=== PATIENT | female | born 1975 | race Caucasian/White ===

== ENCOUNTER → 2024-02-17 06:30 | Day surgery (SDC) | payer OTHER, SELFPAY | LOC: GI 06:30 | PROVIDERS: ATTENDING PHYSICIAN Internal Medicine Gastroenterology | DX: K31.A19 Gastric intestinal metaplasia without dysplasia, unspecified site (principal); K31.89 Other diseases of stomach and duodenum; T18.2XXA Foreign body in stomach, initial encounter; Y83.1 Surgical operation with implant of artificial internal device as the cause of abnormal reaction of the patient, or of later complication, without mention of misadventure at the time of the procedure; Z98.84 Bariatric surgery status | CPT/HCPCS: 43239; 88305; 88342 ==

== ENCOUNTER → 2024-02-29 10:55 | Outpatient (REF) | payer OTHER, SELFPAY | LOC: RCS 10:55 | PROVIDERS: ATTENDING PHYSICIAN Surgery Plastic and Reconstructive Surgery; FAMILY PHYSICIAN Family Medicine | DX: Z01.818 Encounter for other preprocedural examination (principal) | CPT/HCPCS: 93005 ==

== ENCOUNTER → 2024-05-31 08:37 | Outpatient (REF) | payer OTHER, SELFPAY | LOC: WDC 08:37 | PROVIDERS: ATTENDING PHYSICIAN Family Medicine | DX: Z12.31 Encounter for screening mammogram for malignant neoplasm of breast (principal) | CPT/HCPCS: 77063; 77067 ==

== ENCOUNTER 2024-12-14 23:17 | Emergency (ER) | payer OTHER, SELFPAY ==
[2024-12-14 23:26] VITALS: BP 170/104
--- NOTE | 2024-12-15 01:18 | ED.GENMED ---
History of Present Illness
General
Chief Complaint: Facial Problem
Time Seen by Provider: 12/15/24 01:18
History of Present Illness
History of Present Illness:
FOCUSED PAST MEDICAL HISTORY
- Trigeminal neuralgia, high blood pressure, hypothyroidism, anxiety/depression
REVIEW OF OLD RECORDS
- The patient had EGD for gastric intestinal metaplasia in 2023
Note:
CHIEF COMPLAINT(S)
Facial pain and swelling.
HISTORY OF PRESENT ILLNESS
The patient is a 49-year-old female with a history of recurrent facial pain consistent with a preliminary diagnosis of trigeminal neuralgia by her general practitioner, not yet confirmed by a neurologist. Symptoms first appeared six months ago and
lasted approximately a week before resolving spontaneously. The current episode began a few days ago and has been more severe than previous occurrences. She describes the pain as constant 'electrical shock' sensations. The pain has not been
alleviated by her usual medications, including a recent increased dosage of gabapentin, naproxen, and cyclobenzaprine. She also applied topical lidocaine out of desperation without relief. The patient reports associated right-sided facial swelling,
particularly at the angle of the mandible, but no fever or systemic symptoms. She previously canceled a neurology appointment during a symptom-free period but plans to reschedule. She is experiencing significant fatigue and is unable to manage
activities of daily living comfortably.
PAST MEDICAL AND SURGICAL HISTORY
The patient mentions taking gabapentin previously as needed for her symptoms.
EXTERNAL RECORDS REVIEWED
The patient indicates having dental x-rays which revealed no cavities, affirmed by her dentist.
PHYSICAL EXAM
- General: Well appearing but appears rather uncomfortable
- HEENT: Subcentimeter ulcerative lesion to the left posterior oropharynx however she has no pain here, there is some mild soft tissue swelling over the angle of the right side of the manage that extends to the right side of the anterior lateral
- Cardiovascular: No murmurs, normal heart rate, regular rhythm, No chest wall tenderness
- Pulmonary: No respiratory distress
- Abdomen: Soft with no peritoneal signs
- Neurologic: Excellent strength all extremities, no coordination deficits
- Psychiatric: Appropriate mental status, normal insight and judgement
- Extremities: Nontender, no edema, moves all extremities equally
- Skin: No rash, no lesions
PLAN
- Initiate IV for administering medications and blood work.
- Plan for a CT scan of the affected area to rule out any anatomical abnormalities such as mass or abscess.
- Administer Toradol for pain and swelling.
- Administer Dilaudid for pain relief.
- Provide prescription for short-term narcotic use if needed.
- The patient will arrange for transportation home after treatment.
DIFFERENTIAL DIAGNOSIS
The Differential Diagnosis includes, in no particular order and is not limited to:
- Trigeminal neuralgia
- Dental abscess
- Temporomandibular joint disorder
- Sinusitis
- Migraine
- [place] palsy
- Cluster headache
- Atypical facial pain
- Herpetic neuralgia
- Mandibular fracture
SUMMARY OF ENCOUNTER
The patient presented to the emergency department with severe recurrent facial pain and swelling. Previous medications have been ineffective, and she is visibly exhausted and unable to manage the pain at home. The care plan includes pain management
with intravenous medications and further imaging to assess any anatomical causes for her symptoms.
DISPOSITION
The patient is to be discharged after receiving IV medications and completing a CT scan. She will follow up with her neurologist for ongoing management.
ASSESSMENT
The patient likely has a severe flare of trigeminal neuralgia, with considerations for other facial pain etiologies pending imaging results.
EMERGENCY TREATMENTS ADMINISTERED
Administered intravenous Toradol for anti-inflammatory effects and Dilaudid for pain relief.
MEDICATION RECONCILIATION
Current use of gabapentin, naproxen, and cyclobenzaprine noted. Administered Toradol and Dilaudid in the emergency department. Prescription for a short course of narcotic analgesics provided for home use.
DIAGNOSIS
Odontogenic facial infection
SUMMARY OF ENCOUNTER
The patient, a 49-year-old female, presented to the emergency department with severe facial pain and swelling, initially suspected to be trigeminal neuralgia. However, upon examination and additional tests, there was significant tenderness around a
molar, suggesting a possible dental infection. Radiological input indicated concern for infection but not an abscess. The patient reported prior dental imaging showing no cavities, but current symptoms suggest a potential developing dental issue.
The management plan included initiating antibiotics due to the suspicion of a dental source of infection, alongside pain management.
DISPOSITION
Discharge.
ASSESSMENT
The patients presentation is consistent with a suspected dental infection, possibly contributing to her facial pain and related to previous symptoms of trigeminal neuralgia.
EMERGENCY TREATMENTS ADMINISTERED
Administered a dose of amoxicillin and clavulanate (Augmentin) for immediate antibiotic coverage.
PLAN
The patient will be started on antibiotics, specifically amoxicillin and clavulanate, for the suspected dental infection. Short-term narcotic analgesics and anti-inflammatory medications were advised for pain management. The patient is advised to
follow up with her dentist for further evaluation and treatment.
FOLLOW-UP INSTRUCTIONS
Patient is advised to follow up with her dentist as soon as possible to further evaluate the dental infection and determine if additional treatment such as dental work is necessary.
MEDICATION RECONCILIATION
Administered a dose of amoxicillin and clavulanate in the emergency department. Prescribed amoxicillin and clavulanate for home use. Provided short-term narcotic analgesics for pain management.
MEDICAL DECISION MAKING
- Number and Complexity of Problems Addressed: Chronic conditions affecting care include recurrent facial pain consistent with trigeminal neuralgia and a suspected dental infection.
- Data:
Category 2: Clinical information was verified by the dental x-rays obtained by the patients dentist which previously indicated no cavities.
Category 1: My independent review suggests a dental infection based on clinical examination, explaining the significant tenderness and swelling around the molar area.
Category 3: Discussion was held regarding antibiotic treatment for a dental infection, balancing the need for pain relief with narcotics, while continuing anti-inflammatory therapy.
- Risk:
Prescription medication was effectively administered during the visit with amoxicillin and clavulanate initiated for suspected dental infection. Pain management was reinforced with narcotic analgesics. Consideration of Admission/Observation:
Escalation of care including admission/observation was considered given the complexity and risk of the patients presenting complaint and exam findings. However, ultimately, it was concluded that the patient is safe for outpatient management with
close follow-up. Reasoning: Work-up is reassuring, does not reveal any acute life/organ-threatening processes, the patients symptoms well controlled upon reevaluation, reexamination is reassuring, vitals are stable, patient agreeable with discharge,
reliable for follow-up.
RADIOLOGY
- CT imaging obtained
LABS
- CBC and chemistries unremarkable
UPDATE
- The patient was given Toradol as well as Dilaudid for pain.
Past History
Past History
ED Past Medical History: Hypothyroidism and Psychiatric
ED Past Surgical History:
Social History
Tobacco: Former smoker
Alcohol: Occasional
Drug: None
Personal:
Living: with family
Employment: Employed
Family History
Family History: Other (Noncontributory)
Phy Exam
Physical Exam
Physical Exam:
See HPI
Course
Orders/Labs/Results
Orders:
Orders
12/15/24 02:00
CT Neck With Iv Contrast Urgent
Comment:
Reason For Exam: swelling angle R mandible and R neck
HYDROmorphone [Dilaudid] 1 mg IV NOW STA
Ketorolac [Toradol] 15 mg IV NOW STA
Ondansetron Injectable [Zofran] 4 mg IV NOW STA
12/15/24 02:18
Basic Metabolic Panel Urgent
Complete Blood Count/With Diff Urgent
12/15/24 04:15
Amoxicillin 875 mg/Clav 125 mg [Augmentin 875 mg/125 mg] 1 tablet PO NOW STA
Abnormal Lab Results
12/15/24
02:18
Hct 36.5 L %
(37.0-47.0)
Glucose 105 H mg/dl
(70-99)
12/15/24 02:18
12/15/24 02:18
Vital Signs
Initial and Last Documented VS:
Initial Vital Signs
Temp Pulse Resp BP Pulse Ox
36.8 C 73 20 170/104 100
12/14/24 23:26 12/14/24 23:26 12/14/24 23:26 12/14/24 23:26 12/14/24 23:26
Last Documented Vital Signs
Temp Pulse Resp BP Pulse Ox
36.8 C 73 20 170/104 100
12/14/24 23:26 12/14/24 23:26 12/14/24 23:26 12/14/24 23:26 12/15/24 01:19
*Pulse Oximetry
SaO2: 100
Oxygen Mode of Delivery: Room air
Patient hypoxic: no
*Critical Care Note
Total Time (30-74mins, 75-104mins- exclusive of procedures): Not Applicable
ED Attending Note
-
Portions of this chart may have been created with voice recognition software.� Occasional wrong word or��sound alike� substitutions may have occurred due to the inherent limitations of voice recognition software.
Discharge Plan
Departure
Patient Disposition: Home (Routine Discharge)
Date of Disposition: 12/15/24
Time of Disposition: 04:12
Patient with high blood pressure during this ER visit?: Yes
Discharge Problem:
Odontogenic infection of jaw
Instructions: Cellulitis (Skin Infection), Adult (DC), BLOOD PRESSURE
Prescriptions:
New
amoxicillin-pot clavulanate 875-125 mg tablet
1 tab PO BID Qty: 14 0RF
oxycodone-acetaminophen [Percocet] 5-325 mg tablet
1 - 2 tab PO Q8HPRN PRN (Reason: pain) Qty: 14 0RF
No Action
sertraline 100 MG tablet
200 mg PO DAILY
cholecalciferol (vitamin D3) 5,000 UNIT tablet
5,000 unit PO DAILYPRN PRN (Reason: when pt remembers)
lamotrigine [Lamictal] 150 MG tablet
150 mg PO QPM
levothyroxine 75 MCG tablet
75 mcg PO DAILY
dicyclomine 20 MG tablet
20 mg PO QIDPRN PRN (Reason: spasms)
hyoscyamine sulfate 0.125 MG tablet, sublingual
0.125 mg sublingual Q4HPRN PRN (Reason: spasms)
Referrals:
Ruthy Juárez DO [Family Provider, Family Practice]
Activity Restrictions/Additional Instructions:
Your white blood cell count is normal and you do not have a fever however the CAT scan of the neck does suggest infection centered around a molar in the back right of your mouth. I recommend that we start antibiotics. I will send a prescription to
your pharmacy for both pain medication and Augmentin. If you take the pain medication which is a narcotic, I recommend taking something like MiraLAX to help with the constipation.
Interventions
Interventions:
*Risk Screen - Suicide Last Done: 12/14/24 23:26
*General Assessment Last Done: 12/14/24 23:26
*Neglect/Abuse Screening Last Done: 12/14/24 23:26
*ED- Fall Risk Assessment Last Done: 12/14/24 23:26
*ED COVID-19 Vaccine History Last Done: 12/14/24 23:26
ED- Neurological Assessment Last Done: 12/15/24 02:30
ED-Skin Assessment Last Done: 12/15/24 02:30
Discharge Date and Time
Print Language: CZECH
[2024-12-15] MEDS: DILAUDID 1 MG IV (02:12)
[2024-12-15] MEDS: TORADOL 15 MG IV (02:12)
[2024-12-15] MEDS: ZOFRAN 4 MG IV (02:13)
[2024-12-15 02:29] LABS: Hematocrit 36.5 % (37.0-47.0); Hemoglobin 12.4 g/dL (12.0-16.0); Mean Corp Hgb Conc. 34.0 g/dL (33.0-37.0); Mean Corpuscular Volume 82.0 fL (81.0-99.0); Nucleated Red Blood Cells % 0 %; Platelet Count 251 10^3/uL (130-400); Red Cell Dist. Width 12.6 % (11.5-14.5)
[2024-12-15 02:43] LABS: Blood Urea Nitrogen 14 mg/dl (7-17); Calcium 9.8 mg/dl (8.4-10.2); Carbon Dioxide 26 mmol/L (22-30); Chloride 105 mmol/L (98-107); Glucose 105 mg/dl (70-99); Potassium 3.9 mmol/L (3.5-5.1); Sodium 141 mmol/L (135-145); eGFR > 60.00
[2024-12-15 03:30] VITALS: BP 146/93
[2024-12-15] MEDS: AUGMENTIN 875 MG/125 MG 1 TABLET PO (04:19)
== END 2024-12-15 05:16 | disposition home or self-care (01) ==
LOC: EMR 23:17
PROVIDERS: EMERGENCY PHYSICIAN Emergency Medicine; FAMILY PHYSICIAN Family Medicine
DX: M27.2 Inflammatory conditions of jaws (principal); E03.9 Hypothyroidism, unspecified; Z87.891 Personal history of nicotine dependence
CPT/HCPCS: 96374; 96375; 99284; 70491; 80048; 85025; Q9967

== ENCOUNTER 2024-12-16 14:05 | Emergency (ER) | payer OTHER, SELFPAY ==
[2024-12-16 14:08] VITALS: BP 162/100
[2024-12-16 14:52] VITALS: BMI 25.2
--- NOTE | 2024-12-16 15:00 | ED.GENMED ---
History of Present Illness
General
Chief Complaint: Facial Problem
Time Seen by Provider: 12/16/24 14:43
History of Present Illness
History of Present Illness:
49-year-old female presents the emergency department for evaluation of worsening right facial/jaw swelling. She was seen in this emergency department a day and a half ago for similar symptoms at which time she was identified to have a likely
odontogenic mandibular infection and was started on Augmentin. She has been compliant with antibiotics, taking 3 doses thus far however feeling worse. Has not yet followed up with a dentist due to the weekend. No fevers or night sweats
Past History
Past History
ED Past Medical History: Hypothyroidism and Psychiatric
ED Past Surgical History:
Social History
Tobacco: Former smoker
Alcohol: Occasional
Drug: None
Personal:
Living: with family
Employment: Employed
Family History
Family History: Other (Noncontributory)
Review of Systems
Review of Systems
Allergies reviewed?: Yes
All Other Systems: ROS reviewed and negative except as documented in HPI and ROS
Phy Exam
Physical Exam
Physical Exam:
GEN: Well appearing, NAD, WDWN
HEENT: Oral mucosa moist, no scleral icterus. R mandibular swelling, no trismus, oropharynx clear, no oropharyngeal edema or erythema. No clear dental/buccal mucosal fluctuance
Cardiac: Regular rate
Lung: No respiratory distress, no tachypnea
MSK: No gross deformity or injuries
Skin: Good color, no pallor or jaundice, no rashes
Neuro: AO x3, moves all extremities freely
Psych: Calm, cooperative
Course
Orders/Labs/Results
Orders:
Orders
12/16/24 14:59
Oxycodone [Roxicodone] 5 mg PO NOW STA
12/16/24 15:05
HYDROmorphone [Dilaudid] 0.5 mg IV NOW STA
12/16/24 15:08
Ampicillin/Sulbactam 3 G [Unasyn] 3 gm 0.9% Sodium Chloride 100 ml [Nss] 100 ml IV NOW
Ondansetron Injectable [Zofran] 4 mg .ROUTE .STK-MED ONE
12/16/24 15:09
Ondansetron Injectable [Zofran] 4 mg IV NOW STA
12/16/24 16:15
Ketorolac [Toradol] 15 mg IV NOW STA
Vital Signs
Initial and Last Documented VS:
Initial Vital Signs
Temp Pulse Resp BP Pulse Ox
98.8 F 82 17 162/100 99
12/16/24 14:08 12/16/24 14:08 12/16/24 14:08 12/16/24 14:08 12/16/24 14:08
Last Documented Vital Signs
Temp Pulse Resp BP Pulse Ox
98.8 F 72 18 134/90 100
12/16/24 14:08 12/16/24 16:40 12/16/24 16:40 12/16/24 16:40 12/16/24 16:40
MDM/Problems Addressed
MDM/Problems Addressed:
Given 1 dose of IV antibiotics and pain control. Do not see indication for further imaging at this time. Will recommend close dental follow-up as an outpatient, no drainable abscess seen on exam today
*Pulse Oximetry
SaO2: 99
Oxygen Mode of Delivery: Room air
Patient hypoxic: no
*Critical Care Note
Total Time (30-74mins, 75-104mins- exclusive of procedures): Not Applicable
ED Attending Note
-
Portions of this chart may have been created with voice recognition software.� Occasional wrong word or��sound alike� substitutions may have occurred due to the inherent limitations of voice recognition software.
Discharge Plan
Departure
Patient Disposition: Home (Routine Discharge)
Date of Disposition: 12/16/24
Time of Disposition: 16:55
Patient with high blood pressure during this ER visit?: No
Discharge Problem:
Dental infection
Instructions: Tooth Abscess (DC)
Prescriptions:
New
ketorolac 10 mg tablet
10 mg PO Q8H PRN (Reason: Pain) Qty: 10 0RF
Rx Instructions:
maximum total duration of 5 days from all oral, intranasal, or parenteral formulations
No Action
sertraline 100 MG tablet
200 mg PO DAILY
cholecalciferol (vitamin D3) 5,000 UNIT tablet
5,000 unit PO DAILYPRN PRN (Reason: when pt remembers)
lamotrigine [Lamictal] 150 MG tablet
150 mg PO QPM
levothyroxine 75 MCG tablet
75 mcg PO DAILY
dicyclomine 20 MG tablet
20 mg PO QIDPRN PRN (Reason: spasms)
hyoscyamine sulfate 0.125 MG tablet, sublingual
0.125 mg sublingual Q4HPRN PRN (Reason: spasms)
amoxicillin-pot clavulanate 875-125 mg tablet
1 tab PO BID Qty: 14 0RF
oxycodone-acetaminophen [Percocet] 5-325 mg tablet
1 - 2 tab PO Q8HPRN PRN (Reason: pain) Qty: 14 0RF
Referrals:
Ruthy Juárez DO [Family Provider, Family Practice]
Activity Restrictions/Additional Instructions:
Your CT from Tuesday showed a periapical lucency to the right first mandibular molar that may be the source of your infection, please follow-up with your dentist regarding this
Stop the naproxen in favor of oral Toradol
Interventions
Interventions:
*Risk Screen - Suicide Last Done: 12/16/24 14:09
*General Assessment Last Done: 12/16/24 14:09
*Neglect/Abuse Screening Last Done: 12/16/24 14:09
*ED- Fall Risk Assessment Last Done: 12/16/24 17:05
*ED COVID-19 Vaccine History Last Done: 12/16/24 14:09
*Nursing Disposition Last Done: 12/16/24 17:05
ED- Neurological Assessment Last Done: 12/16/24 17:05
ED-Skin Assessment Last Done: 12/16/24 17:05
Discharge Date and Time
Discharge Date/Time: 12/16/24 17:05
Print Language: MALTESE
[2024-12-16] MEDS: ZOFRAN 4 MG IV (15:10)
[2024-12-16] MEDS: DILAUDID 0.5 MG IV (15:10)
[2024-12-16 15:25] VITALS: BP 152/83
[2024-12-16] MEDS: UNASYN IV (16:04)
[2024-12-16] MEDS: TORADOL 15 MG IV (16:36)
[2024-12-16 16:40] VITALS: BP 134/90
== END 2024-12-16 17:05 | disposition home or self-care (01) ==
LOC: EMR 14:05
PROVIDERS: EMERGENCY PHYSICIAN Student in an Organized Health Care Education/Training Program; FAMILY PHYSICIAN Family Medicine
DX: K04.7 Periapical abscess without sinus (principal); R22.0 Localized swelling, mass and lump, head; E03.9 Hypothyroidism, unspecified; Z87.891 Personal history of nicotine dependence; Z98.891 History of uterine scar from previous surgery
CPT/HCPCS: 99282; 96365; 96375